=== PATIENT | male | born 1965 | race African-American/Black ===

== ENCOUNTER 2016-11-21 09:03 | Emergency (ER) | payer OTHER ==
[~2016-11-21] VITALS: Ht 170.2 cm; Wt 72.6 kg
[~2016-11-21 09:03] MED LIST: ALBUTEROL SULF8.5 GM INH; ALLEGRA ALLERGY60 M1 PO; ASPIR 8181 MG ORAL; ATORVASTATIN CA10 MG ORAL; BENADRYL A12.5 MG/5 ORAL; HYDROCHLOROTHIA25 MG ORAL; HYDROCORTISONE28 G5 TP; IBUPROFEN600 MG ORAL
[2016-11-21 09:20] VITALS: BP 151/102
[2016-11-21] MEDS ORDERED: Bacitracin Oint UD TOPIC ONE (10:00)
[2016-11-21] MEDS ORDERED: LORazepam 1mg tab ORAL ONE (10:00)
[2016-11-21 10:16] VITALS: BP 0/0
--- NOTE | 2016-11-21 22:21 | Emergency Room Report ---
History of Present Illness General Chief Complaint: General Complaint Source: Patient Present Illness HPI Patient brought by sister. According to Mom, he is acting bizarrely. They had called police, but they declined to bring or place patient on hold. EMS also declined as patient refused to come. Patient only states he needs "peach cobbler". C/O scratch R forearm. Denies SOTO, chest pain, NVD. Generally though, he refused to answer questions and perseverates about above and also states how "pretty the women are". Denies drugs. States tetanus UTD. Alleges he had a stroke 4-5 years ago. Seen 2010 for L arm numbness, but records not available. Other records state "TIA". Also h/o depression. No weakness. Allergies: Coded Allergies: No Known Allergies (Unverified , 03/31/13) Patient History Past Medical History: see triage record, old chart reviewed Social History: Reports: smoking Social History Narrative with sister Reviewed Nursing Documentation: PMH: Agreed, PSxH: Agreed Nursing Documentation-PMH Past Medical History: No History, Except For Hx Cardiac Problems: No Hx Hypertension: Yes Hx Pacemaker: No Hx Asthma: No Hx COPD: No Hx Diabetes: No Hx Cancer: No Hx Gastrointestinal Problems: No Hx Dialysis: No Hx Neurological Problems: No Hx Cerebrovascular Accident: Yes - TIA Hx Seizures: No Review of Systems All Other Systems: limited Physical Exam Vital Signs Date Time Temp Pulse Resp B/P Pulse Ox O2 Delivery O2 Flow Rate FiO2 11/21/16 09:12 97.9 93 14 151/102 98 Room Air Sp02 EP Interpretation: reviewed, normal General Appearance: well appearing, no apparent distress, non-toxic Head: normocephalic, atraumatic Eyes: bilateral eye PERRL, bilateral eye normal inspection ENT: moist mucus membranes Neck: full range of motion, supple Respiratory: chest non-tender, lungs clear, normal breath sounds Cardiovascular #1: regular rate, rhythm Cardiovascular #2: 2+ radial (R) Gastrointestinal: normal inspection, normal bowel sounds, non tender, no mass, non-distended Musculoskeletal: back normal, gait/station normal, normal range of motion Neurologic: alert, motor strength/tone normal, DTRs symmetric, sensory intact, cerebellar normal, normal gait, speech normal - though pressured, oriented - X1- 2 Psychiatric: no suicidal/homicidal ideation, other - delusional, hypersexual - labile Skin: normal color, warm/dry, abrasions - R forearm Medical Decision Making Diagnostic Impression: Primary Impression: Bizarre behavior Additional Impressions: Forearm abrasion Qualified Codes: S50.811A - Abrasion of right forearm, initial encounter Eloped ER Course Patient brought by sister for bizarre behavior. Ddx: psychosis, electrolyte imbalance, drug ingestion, exacerbation of depression amongst others. Patient somewhat delusional, not responding to questioning - concern over underlying organic or psychiatric etiology. Needs emergent evaluation with labs, CT, EKG. Abrasion superficial. Patient placed on medical hold. As clearly delusional , will give antipsychotic medication to assist with evaluation and possible help with delusions. He was going to the bathroom to give urine sample and ran out of ED. [employer] notified and requested to return patient to ED. Called phone and message left to return to ED. Last Vital Signs Date Time Temp Pulse Resp B/P Pulse Ox O2 Delivery O2 Flow Rate FiO2 11/21/16 10:16 97.9 0 0 0/0 0 Room Air Status: other - patient eloped Disposition: ELOPED Condition: Serious Referrals: [facility] (PCP) Jack Miguel M.D. Nov 21, 2016 22:21
== END 2016-11-21 10:18 | disposition left against medical advice (07) ==
LOC: EMR 09:59
DX: R46.2 Strange and inexplicable behavior (principal); S50.811A Abrasion of right forearm, initial encounter; X58.XXXA Exposure to other specified factors, initial encounter; Y93.9 Activity, unspecified; Y92.9 Unspecified place or not applicable; Z86.73 Personal history of transient ischemic attack (TIA), and cerebral infarction without residual deficits; F17.200 Nicotine dependence, unspecified, uncomplicated; I10 Essential (primary) hypertension
CPT/HCPCS: 99285

== ENCOUNTER 2016-12-02 12:16 | Emergency (ER) | payer OTHER ==
[~2016-12-02] VITALS: Ht 170.2 cm; Wt 76.7 kg
[2016-12-02 12:35] VITALS: BP 130/99
[2016-12-02] MEDS ORDERED: METOPROLOL TART25 MG ORAL (12:35)
[2016-12-02 13:01] LABS: BASOPHILS % (AUTO) 1.1 % (0.0-2.0); EOSINOPHILS % (AUTO) 1.2 % (0.0-3.0); MEAN CORPUSCULAR HEMOGLOBIN 31.7 PG (27.0-31.0); MEAN CORPUSCULAR HGB CONC 34.7 G/DL (32.0-36.0); MEAN CORPUSCULAR VOLUME 91 FL (80-99); MEAN PLATELET VOLUME 7.1 FL (6.5-10.1); MONOCYTES % (AUTO) 8.2 % (1.0-10.0); NEUTROPHILS % (AUTO) 55.5 % (45.0-75.0); PLATELET COUNT 264 K/UL (150-450); RED BLOOD COUNT 4.88 M/UL (4.70-6.10); RED CELL DISTRIBUTION WIDTH 11.1 % (11.6-14.8); WHITE BLOOD COUNT 4.8 K/UL (4.8-10.8)
[2016-12-02 13:28] LABS: TROPONIN I < 0.30 ng/mL (<=0.30)
[2016-12-02 13:31] LABS: ANION GAP 18 (5-15); CALCIUM 9.6 mg/dL (8.6-10.2); CARBON DIOXIDE 25 mEQ/L (20-30); CHLORIDE 97 mEQ/L (98-107); CREATININE 1.3 mg/dL (0.7-1.2); GLOMERULAR FILTRATION RATE > 60 mL/min (>60); POTASSIUM 3.3 mEQ/L (3.4-4.9); SODIUM 140 mEQ/L (135-145)
[2016-12-02 13:32] LABS: ALANINE AMINOTRANSFERASE 29 U/L (3-41); ASPARTATE AMINO TRANSFERASE 24 U/L (5-40); TOTAL PROTEIN 6.9 g/dL (6.6-8.7)
[2016-12-02 13:33] LABS: HEMOLYSIS 6
[2016-12-02 13:38] LABS: CKMB 5.2 ng/mL (< 6.7)
[2016-12-02 14:00] VITALS: BP 128/85
[2016-12-02 14:00] LABS: DIGOXIN < 0.3 ng/mL (0.5-2.0)
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
--- NOTE | 2016-12-03 10:06 | Diagnostic Imaging Report ---
Indication: Shortness of breath Technique: XRAY CHEST 1 V Comparison: 05/05/15 Findings: The cardiomediastinal silhouette is within normal limits. There is no focal consolidation, pneumothorax or pleural effusion. Osseous structures demonstrate no acute abnormality. Impression: No acute cardiopulmonary disease.
--- NOTE | 2016-12-08 16:34 | Cardiology Report ---
APPROVED REPORT EKG Measurement Heart [id number] [place] [id number] Normal sinus rhythm Incomplete right bundle branch block T wave abnormality, consider anterior ischemia Abnormal ECG
== END 2016-12-02 14:00 | disposition left against medical advice (07) ==
LOC: EMR 12:48
DX: R07.9 Chest pain, unspecified (principal); I10 Essential (primary) hypertension; Z86.73 Personal history of transient ischemic attack (TIA), and cerebral infarction without residual deficits
CPT/HCPCS: 36415; 71010; 80053; 80162; 82550; 82553; 84484; 85025; 93005; 96360

== ENCOUNTER 2017-01-12 21:19 | Emergency (ER) | payer OTHER ==
[~2017-01-12] VITALS: Ht 172.7 cm; Wt 72.6 kg
[~2017-01-12 21:19] MED LIST changes: +METOPROLOL TART25 MG ORAL
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
[2017-01-12 22:04] LABS: BASOPHILS % (AUTO) 1.2 % (0.0-2.0); LYMPHOCYTES % (AUTO) 32.1 % (20.0-45.0); MEAN CORPUSCULAR HEMOGLOBIN 34.4 PG (27.0-31.0); MEAN CORPUSCULAR HGB CONC 35.4 G/DL (32.0-36.0); MEAN CORPUSCULAR VOLUME 97 FL (80-99); MEAN PLATELET VOLUME 6.2 FL (6.5-10.1); MONOCYTES % (AUTO) 8.6 % (1.0-10.0); NEUTROPHILS % (AUTO) 55.1 % (45.0-75.0); PLATELET COUNT 209 K/UL (150-450); RED BLOOD COUNT 4.37 M/UL (4.70-6.10); RED CELL DISTRIBUTION WIDTH 12.3 % (11.6-14.8); WHITE BLOOD COUNT 5.3 K/UL (4.8-10.8)
[2017-01-12 22:20] LABS: ANION GAP 15 (5-15); CALCIUM 9.4 mg/dL (8.6-10.2); CARBON DIOXIDE 25 mEQ/L (20-30); CHLORIDE 99 mEQ/L (98-107); GLOMERULAR FILTRATION RATE > 60 mL/min (>60); HEMOLYSIS 7; POTASSIUM 3.6 mEQ/L (3.4-4.9); SODIUM 139 mEQ/L (135-145)
[2017-01-12 22:21] LABS: TROPONIN I < 0.30 ng/mL (<=0.30)
[2017-01-12 22:28] VITALS: BP 127/92
[2017-01-12 22:39] LABS: APPEARANCE,URINE CLEAR; KETONES,URINE NEGATIVE (NEGATIVE); LEUKOCYTE ESTERASE ,URINE NEGATIVE (NEGATIVE); NITRITE,URINE NEGATIVE (NEGATIVE); PH,URINE 7 (4.5-8.0); PROTEIN,URINE NEGATIVE (NEGATIVE); UROBILINOGEN,URINE NORMAL MG/DL (0.0-1.0)
[2017-01-12 23:04] VITALS: BP 132/91
--- NOTE | 2017-01-13 10:11 | Diagnostic Imaging Report ---
Indication: CP Technique: XRAY CHEST 1 V Comparison: 12/02/2016. Findings: The cardiomediastinal silhouette is normal. The lungs are clear. There is no evidence of pleural fluid. The bones are unremarkable. Impression: Normal chest.
--- NOTE | 2017-01-17 08:31 | Cardiology Report ---
APPROVED REPORT EKG Measurement Heart [id number] [id number] Normal sinus rhythm Incomplete right bundle branch block Nonspecific T wave abnormality Abnormal ECG
== END 2017-01-12 23:10 | disposition home or self-care (01) ==
LOC: EMR 21:57
DX: R07.9 Chest pain, unspecified (principal); F16.10 Hallucinogen abuse, uncomplicated; I10 Essential (primary) hypertension; F17.200 Nicotine dependence, unspecified, uncomplicated
CPT/HCPCS: 36415; 71010; 80048; 80300; 81003; 84484; 85025; 93005; 99283

== ENCOUNTER 2017-09-04 07:48 | Emergency (ER) | payer OTHER ==
[~2017-09-04] VITALS: Ht 167.6 cm; Wt 75.7 kg
[2017-09-04] MEDS ORDERED: Sodium Chloride 500ML 500 ML IV ONE (08:10)
[2017-09-04 08:17] VITALS: BP 127/91
--- NOTE | 2017-09-04 08:41 | Emergency Room Report ---
History of Present Illness General Chief Complaint: Generalized Weakness Source: Patient Present Illness HPI Patient is a 52-year-old male who presented after increased generalized weakness as well as right-sided flank pain. The patient gradual onset of symptoms. Patient reports having prior history of hypertension for which he does not take medications regularly however he has been prescribed medications in the past. The patient not been having any fever. He reported having some epigastric burning sensation for the past few days. He denies any bloody stools. He reports urinating normally. He reports having some intermittent numbness to his left upper extremity as well as some hand cramping. He denied episodes of diarrhea. Allergies: Coded Allergies: No Known Allergies (Unverified , 03/31/13) Patient History Past Medical History: see triage record Reviewed Nursing Documentation: PMH: Agreed, PSxH: Agreed Nursing Documentation-PMH Past Medical History: No History, Except For Hx Hypertension: Yes Hx Pacemaker: No Hx Asthma: No Hx COPD: No Hx Diabetes: No Hx Cancer: No Hx Gastrointestinal Problems: No Hx Dialysis: No Hx Neurological Problems: No Hx Seizures: No Review of Systems All Other Systems: negative except mentioned in HPI Physical Exam Vital Signs Date Time Temp Pulse Resp B/P (MAP) Pulse Ox O2 Delivery O2 Flow Rate FiO2 09/04/17 07:50 97.7 81 18 147/100 99 Room Air Sp02 EP Interpretation: reviewed, normal General Appearance: normal inspection, well appearing, no apparent distress, alert, GCS 15, non-toxic Head: atraumatic ENT: normal ENT inspection, hearing grossly normal, normal voice Neck: normal inspection, full range of motion, supple, no bony tend Respiratory: normal inspection, lungs clear, normal breath sounds, no respiratory distress, no retraction, no wheezing Cardiovascular #1: regular rate, rhythm, no edema Gastrointestinal: normal inspection, normal bowel sounds, non tender, soft, no guarding, no hernia Genitourinary: no CVA tenderness Musculoskeletal: normal inspection, back normal, normal range of motion Neurologic: normal inspection, alert, oriented x3, responsive, training coordinator III-XII nml as tested, speech normal Psychiatric: normal inspection, judgement/insight normal, mood/affect normal Skin: normal inspection, normal color, no rash Medical Decision Making Diagnostic Impression: Primary Impression: Episode of generalized weakness Additional Impressions: Cystic disease of liver Positive urine drug screen ER Course Patient presented for flank pain. Differential diagnosis included was not limited to pneumonia, renal stone, rib fracture, pulmonary embolism, ulcer, enteritis, pyelonephritis among others. Because of complexity of patient's case laboratory testing and imaging studies were ordered.The patient was noted to have some concerning signs of symptoms including weight loss.A CT abdomen pelvis was ordered with oral contrast. Laboratory testing was notable for urination positive for PCP as well as marijuana. The patient was noted to have CT imaging of the abdomen pelvis read by radiology which showed multiple cystic lesions to his liver. The patient is advised to followup with primary care physician for further workup of liver cysts as well as further evaluation of his weight loss. Patient is advised that he may need gastroenterology followup for EGD and colonoscopy.The patient was also noted to have enlarged prostate.The patient is advised to follow up with primary care doctor in 1-2 days. Patient is advised to return if any worsening condition or if any changes in status that are concerning. Labs Test 09/04/17 08:20 09/04/17 08:35 09/04/17 09:15 White Blood Count 4.5 K/UL (4.8-10.8) Red Blood Count 4.92 M/UL (4.70-6.10) Hemoglobin 16.0 G/DL (14.2-18.0) Hematocrit 47.5 % (42.0-52.0) Mean Corpuscular Volume 97 FL (80-99) Mean Corpuscular Hemoglobin 32.4 PG (27.0-31.0) Mean Corpuscular Hemoglobin Concent 33.5 G/DL (32.0-36.0) Red Cell Distribution Width 11.0 % (11.6-14.8) Platelet Count 238 K/UL (150-450) Mean Platelet Volume 6.4 FL (6.5-10.1) Neutrophils (%) (Auto) 59.4 % (45.0-75.0) Lymphocytes (%) (Auto) 28.0 % (20.0-45.0) Monocytes (%) (Auto) 9.6 % (1.0-10.0) Eosinophils (%) (Auto) 1.8 % (0.0-3.0) Basophils (%) (Auto) 1.3 % (0.0-2.0) Erythrocyte Sedimentation Rate 15 MM/HR (0-20) Prothrombin Time 9.5 SEC (9.30-11.50) Prothromb Time International Ratio 0.9 (0.9-1.1) Activated Partial Thromboplast Time 30 SEC (23-33) Sodium Level 141 MMOL/L (136-145) Potassium Level 3.7 MMOL/L (3.5-5.1) Chloride Level 106 MMOL/L (98-107) Carbon Dioxide Level 26 MMOL/L (21-32) Anion Gap 9 mmol/L (5-15) Blood Urea Nitrogen 12 mg/dL (7-18) Creatinine 1.2 MG/DL (0.55-1.30) Estimat Glomerular Filtration Rate > 60 mL/min (>60) Glucose Level 114 MG/DL (74-106) Calcium Level 9.5 MG/DL (8.5-10.1) Total Bilirubin 0.7 MG/DL (0.2-1.0) Aspartate Amino Transf (AST/SGOT) 18 U/L (15-37) Alanine Aminotransferase (ALT/SGPT) 29 U/L (12-78) Alkaline Phosphatase 92 U/L (46-116) Troponin I 0.000 ng/mL (0.000-0.056) Total Protein 7.6 G/DL (6.4-8.2) Albumin 3.9 G/DL (3.4-5.0) Globulin 3.7 g/dL Albumin/Globulin Ratio 1.1 (1.0-2.7) Lipase 144 U/L (73-393) Urine Color Yellow Urine Appearance Clear Urine pH 6 (4.5-8.0) Urine Specific [place] 1.020 (1.005-1.035) Urine Protein Negative (NEGATIVE) Urine Glucose (UA) Negative (NEGATIVE) Urine Ketones Negative (NEGATIVE) Urine Occult Blood Negative (NEGATIVE) Urine Nitrite Negative (NEGATIVE) Urine Bilirubin Negative (NEGATIVE) Urine Urobilinogen Normal MG/DL (0.0-1.0) Urine Leukocyte Esterase Negative (NEGATIVE) Urine Opiates Screen Negative (NEGATIVE) Urine Barbiturates Screen Negative (NEGATIVE) Phencyclidine (PCP) Screen Positive (NEGATIVE) Urine Amphetamines Screen Negative (NEGATIVE) Urine Benzodiazepines Screen Negative (NEGATIVE) Urine Cocaine Screen Negative (NEGATIVE) Urine Marijuana (THC) Screen Positive (NEGATIVE) Last Vital Signs Date Time Temp Pulse Resp B/P (MAP) Pulse Ox O2 Delivery O2 Flow Rate FiO2 09/04/17 08:17 97.8 64 23 127/91 97 Room Air Status: improved Disposition: HOME, SELF-CARE Condition: Stable Referrals: [facility] ([facility]P) Elliott Escalante Sep 04, 2017 08:41
[2017-09-04 08:47] LABS: INR 0.9 (0.9-1.1); PROTHROMBIN TIME 9.5 SEC (9.30-11.50)
[2017-09-04 08:50] LABS: ANION GAP 9 mmol/L (5-15); CALCIUM 9.5 MG/DL (8.5-10.1); CARBON DIOXIDE 26 MMOL/L (21-32); CHLORIDE 106 MMOL/L (98-107); CREATININE 1.2 MG/DL (0.55-1.30); GLOMERULAR FILTRATION RATE > 60 mL/min (>60); POTASSIUM 3.7 MMOL/L (3.5-5.1); SODIUM 141 MMOL/L (136-145)
[2017-09-04 08:51] LABS: BASOPHILS % (AUTO) 1.3 % (0.0-2.0); EOSINOPHILS % (AUTO) 1.8 % (0.0-3.0); MEAN CORPUSCULAR HEMOGLOBIN 32.4 PG (27.0-31.0); MEAN CORPUSCULAR HGB CONC 33.5 G/DL (32.0-36.0); MEAN CORPUSCULAR VOLUME 97 FL (80-99); MEAN PLATELET VOLUME 6.4 FL (6.5-10.1); MONOCYTES % (AUTO) 9.6 % (1.0-10.0); NEUTROPHILS % (AUTO) 59.4 % (45.0-75.0); PLATELET COUNT 238 K/UL (150-450); RED BLOOD COUNT 4.92 M/UL (4.70-6.10); WHITE BLOOD COUNT 4.5 K/UL (4.8-10.8)
[2017-09-04 08:54] LABS: ALANINE AMINOTRANSFERASE 29 U/L (12-78); ALBUMIN/GLOBULIN RATIO 1.1 (1.0-2.7); ASPARTATE AMINO TRANSFERASE 18 U/L (15-37); LIPASE 144 U/L (73-393); TOTAL PROTEIN 7.6 G/DL (6.4-8.2)
[2017-09-04 09:07] LABS: APPEARANCE,URINE CLEAR; KETONES,URINE NEGATIVE (NEGATIVE); LEUKOCYTE ESTERASE ,URINE NEGATIVE (NEGATIVE); NITRITE,URINE NEGATIVE (NEGATIVE); PH,URINE 6 (4.5-8.0); PROTEIN,URINE NEGATIVE (NEGATIVE); UROBILINOGEN,URINE NORMAL MG/DL (0.0-1.0)
[2017-09-04 10:22] VITALS: BP 130/69
[2017-09-04 11:21] VITALS: BP 126/94
[2017-09-04 11:39] VITALS: BP 129/94
--- NOTE | 2017-09-06 17:21 | Cardiology Report ---
APPROVED REPORT EKG Measurement Heart [id number] 160P44 [id number] Sinus bradycardia Otherwise normal ECG
--- NOTE | 2017-09-07 10:03 | Diagnostic Imaging Report ---
Indication: Abdominal pain Technique: CT of the abdomen and pelvis utilizing automated exposure control with intravenous contrast. Oral contrast was also administered. Venous scanning performed. CT dose: Total DLP 762 mGycm; CTDI vol 15.4 mGy Comparison: None Findings: Dependent atelectasis noted in the lung bases. Heart size is within normal limits. There is no pericardial effusion. Liver is normal in contour. There are multiple simple appearing well-circumscribed low-attenuation lesions in the liver, largest of which is located in the left lobe measuring up to 1.6 mm in diameter. This has internal density measurements compatible with a simple hepatic cyst. Additional similar appearing but smaller lesions are too small to definitively characterize but may represent simple cysts or biliary hamartomas. There are also some low attenuation lesions that demonstrate somewhat nodular enhancement which would be characteristic of a hemangioma, the largest of these is in the right hepatic lobe measures up to 2 cm in diameter. Hepatic veins and portal veins appear patent. Gallbladder is unremarkable in appearance. Spleen, adrenal glands and pancreas are unremarkable in appearance. The kidneys enhance symmetrically. There is no urinary tract stone or hydronephrosis bilaterally. Bladder is normal in appearance. Prostate is mildly enlarged and heterogeneous. There is no evidence of bowel obstruction. No free peritoneal fluid or air is identified. There are scattered colonic diverticula without evidence to suggest acute diverticulitis. The appendix is normal. No pathologically enlarged abdominal or pelvic lymphadenopathy. Abdominal aorta is normal in caliber. No acute osseous abnormality seen. Small fat-containing right inguinal hernia. Impression: No evidence of acute intra-abdominal pathology. * Multiple well-circumscribed low attenuation lesions in the liver, some with characteristics of simple hepatic cysts and others with characteristics of hepatic hemangiomas. Additional subcentimeter lesions are too small to fully characterize. Consider dynamic contrast-enhanced liver protocol MRI for definitive evaluation. This may be obtained on a nonemergent basis. * Few scattered colonic diverticula. Evidence to suggest acute diverticulitis. * Prostatomegaly. * No bowel obstruction. Appendix normal. * Additional findings as above The CT scanner at [facility] is accredited by the [employer] and the scans are performed using protocols designed to limit radiation exposure to as low as reasonably achievable to attain images of sufficient resolution adequate for diagnostic evaluation.
--- NOTE | 2017-09-07 10:03 | Diagnostic Imaging Report ---
Indication: Charts of breath Technique: XRAY CHEST 1 V Comparison: 1417 Findings: Heart size and mediastinal contours are within normal limits given technique. There is no focal consolidation, pneumothorax or pleural effusion. Osseous structures demonstrate no acute abnormality. Impression: No radiographic evidence of acute cardiopulmonary disease.
== END 2017-09-04 11:40 | disposition home or self-care (01) ==
LOC: EMR 08:13
DX: R53.1 Weakness (principal); K76.89 Other specified diseases of liver; I10 Essential (primary) hypertension; N40.0 Benign prostatic hyperplasia without lower urinary tract symptoms; F12.90 Cannabis use, unspecified, uncomplicated; F16.90 Hallucinogen use, unspecified, uncomplicated
CPT/HCPCS: 36415; 71010; 74177; 80053; 80307; 81003; 83690; 84484; 85025; 85610; 85651; 85730; 86850; 86900; 86901; 93005; 96360; 99284; Q9967

== ENCOUNTER 2018-08-18 13:23 | Emergency (ER) | payer OTHER ==
[~2018-08-18] VITALS: Ht 167.6 cm; Wt 72.6 kg
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
[2018-08-18] MEDS ORDERED: Methocarbamol 500mg tab ORAL ONE (14:00)
[2018-08-18] MEDS ORDERED: TYLENOL EXTRA500 MG ORAL (14:40)
[2018-08-18] MEDS ORDERED: ROBAXIN500 MG PO (14:40)
[2018-08-18] MEDS ORDERED: LIDOCAINE700 M1 TP (14:40)
[2018-08-18 14:57] VITALS: BP_SYST 131; BP_SYST 135; BP_DIAS 79; BP_DIAS 83
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
== END 2018-08-18 14:57 | disposition home or self-care (01) ==
LOC: EMR 13:40
DX: S16.1XXA Strain of muscle, fascia and tendon at neck level, initial encounter (principal); V44.5XXA Car driver injured in collision with heavy transport vehicle or bus in traffic accident, initial encounter; Y92.410 Unspecified street and highway as the place of occurrence of the external cause; M50.31 Other cervical disc degeneration, high cervical region; I10 Essential (primary) hypertension
CPT/HCPCS: 72125; 99284

== ENCOUNTER 2018-12-29 08:46 | Emergency (ER) | payer OTHER ==
[~2018-12-29] VITALS: Ht 170.2 cm; Wt 71.7 kg
[~2018-12-29 08:46] MED LIST changes: +LIDOCAINE700 M1 TP; +ROBAXIN500 MG PO; +TYLENOL EXTRA500 MG ORAL
[2018-12-29 08:55] VITALS: BP 157/97
[2018-12-29] MEDS ORDERED: NYSTATIN15 GM TOPIC (09:25)
--- NOTE | 2018-12-29 09:35 | Emergency Room Report ---
History of Present Illness General Chief Complaint: Male Urogenital Problems Source: Patient Present Illness HPI Patient presents with complaints of itching to the penile head Reports that the itching is just under the foreskin Ongoing for the past several days Patient reports that he does use condoms on a regular basis however there has been several episodes where he did not use a condom He was concerned that his partner might have yeast infection Denies any swollen lymph nodes denies any fevers denies any vomiting or diarrhea denies any other ulcerations or other type of rash Allergies: Coded Allergies: No Known Allergies (Unverified , 03/31/13) Patient History Past Medical History: see triage record Pertinent Family History: none Reviewed Nursing Documentation: PMH: Agreed; PSxH: Agreed Nursing Documentation-PMH Past Medical History: No History, Except For Hx Hypertension: Yes Hx Pacemaker: No Hx Asthma: No Hx COPD: No Hx Diabetes: No Hx Cancer: No Hx Gastrointestinal Problems: No Hx Dialysis: No Hx Neurological Problems: No Hx Seizures: No Review of Systems All Other Systems: negative except mentioned in HPI Physical Exam Vital Signs Date Time Temp Pulse Resp B/P (MAP) Pulse Ox O2 Delivery O2 Flow Rate FiO2 12/29/18 08:55 98.1 101 20 157/97 98 Room Air Sp02 EP Interpretation: reviewed, normal General Appearance: well appearing, no apparent distress Head: normocephalic, atraumatic Eyes: bilateral eye PERRL, bilateral eye EOMI ENT: no angioedema Neck: supple Gastrointestinal: non tender, soft Genitourinary: other - Mild fine erythematous hue just at the foreskin no obvious ulcerations or blister formation Musculoskeletal: normal inspection Neurologic: alert, oriented x3, responsive Skin: other - As above Lymphatic: no adenopathy Medical Decision Making Diagnostic Impression: Primary Impression: dermatitis Additional Impression: rash ER Course Patient's exam reveals some fine erythematous hue just in the foreskin, appears to be likely fungal/yast in nature Patient does not complain of any other discharge there was no other ulcerations or ulcer formation or petechiae 2, taped other STD pathology acutely Patient however is at risk and requires close STD clinic follow-up I discussed with him that the examination today does not evaluate for HIV or other infectious pathology and this is required emergently as an outpatient basis given his history and presentation patient understands this and will follow closely Last Vital Signs Date Time Temp Pulse Resp B/P (MAP) Pulse Ox O2 Delivery O2 Flow Rate FiO2 12/29/18 08:55 98.1 101 20 157/97 98 Room Air Status: unchanged Disposition: HOME, SELF-CARE Condition: Stable Scripts Nystatin* (NYSTATIN*) 15 Gm Cream..g. 1 INCH TOPIC THREE TIMES A DAY for 7 Days, #15 GM Prov: Ruth Perdomo DO 12/29/18 Referrals: [facility]ERR[facility] (PCP) Laura [facility]. [facility] Patient Instructions: Genital Yeast Infection, Male, Rash, [id number] Additional Instructions: Patient is provided with the discharge instructions notified to follow up with primary doctor in the next 2-3 days otherwise return to the er with any worsening symptoms. Please note that this report is being documented using [employer] technology. This can lead to erroneous entry secondary to incorrect interpretation by the dictating instrument. Ruth Perdomo DO Dec 29, 2018 09:35
--- NOTE | 2018-12-29 09:46 | NUR ---
ER DISCHARGE NOTE: Patient is cleared to be discharged per ERMD, pt is aox4, on room air, with stable vital signs. pt was given dc and prescription instructions, pt was able to verbalize understanding, pt is able to ambulate with steady gait. pt took all belongings.
[2018-12-29 09:47] VITALS: BP 154/91
== END 2018-12-29 09:48 | disposition home or self-care (01) ==
LOC: EMR 09:20
DX: L30.9 Dermatitis, unspecified (principal); I10 Essential (primary) hypertension
CPT/HCPCS: 99282

== ENCOUNTER → 2019-07-19 | Emergency (ER) | payer OTHER ==
[~2019-07-19] VITALS: Ht 167.6 cm; Wt 72.6 kg
[~2019-07-19] MED LIST changes: +NYSTATIN15 GM TOPIC
--- NOTE | 2019-07-19 17:38 | NUR ---
called pt, not in the waiting room.
--- NOTE | 2019-07-19 17:50 | NUR ---
ED Nurse Note: Patient walked in to ER from home to get psychic evaluation per pt's friend recommendation. pt aao x4 and ambulatory. skin clean and intact. cooperative but loud speaker. per pt's friend pt tends to scream often. pt denied idea of hurting himself or others.
[2019-07-19 18:04] VITALS: BP 132/95
--- NOTE | 2019-07-19 18:16 | Emergency Room Report ---
History of Present Illness General Chief Complaint: General Complaint Source: Medical Record Present Illness HPI 54-year-old male with no significant past medical history here with his significant other for psychiatric evaluation. Patient himself denies having any psychiatric issues, denies SI, HI, history of depression, anxiety. According to significant other patient was at the store with her he started randomly talking to different people in the voice however did not contact anyone or use language. Patient appears to have full judgment and responsive. Denies other associated symptoms, chest pain, shortness of breath, palpitation, and other associated symptoms. Denies history of psychiatric disorders. Patient himself does not want to be psychiatrically. Patient does not suggest that he is under the influence of any drugs or has an disorder. Denies drug use , tobacco smoke, alcohol intake. Allergies: Coded Allergies: No Known Allergies (Unverified , 03/31/13) Patient History Past Surgical History: unable to obtain Family History: none Immunizations: UTD Reviewed Nursing Documentation: PMH: Agreed; PSxH: Agreed Nursing Documentation-PMH Past Medical History: No History, Except For Hx Hypertension: Yes Hx Pacemaker: No Hx Asthma: No Hx COPD: No Hx Diabetes: No Hx Cancer: No Hx Gastrointestinal Problems: No Hx Dialysis: No Hx Neurological Problems: No Hx Seizures: No Review of Systems All Other Systems: negative except mentioned in HPI Physical Exam Vital Signs Date Time Temp Pulse Resp B/P (MAP) Pulse Ox O2 Delivery O2 Flow Rate FiO2 07/19/19 17:45 98.1 92 18 132/95 (107) 96 Room Air Sp02 EP Interpretation: reviewed, normal General Appearance: alert/responsive, no apparent distress, GCS 15, non-toxic Head: atraumatic Eyes: PERRL, lids + conjunctiva normal ENT: hearing intact, no angioedema Neck: supple/symm/no masses, no meningismus Respiratory: effort normal, no wheezing, chest symmetrical Cardiovascular: regular rate, rhythm, no edema Gastrointestinal: non-tender, no mass, non-distended, no rebound/guarding, normal bowel sounds Musculoskeletal: gait & station normal, strength & tone normal, normal ROM, non -tender Neurologic: normal inspection, CN II-XII intact, oriented x3, DTRs symmetric Psychiatric: normal inspection, judgment & insight normal Skin: no rash, well hydrated Lymphatic: normal inspection Medical Decision Making PA Attestation All my diagnosis and treatment plans were reviewed ad discussed with my supervising physician Dr. Stallworth Diagnostic Impression: Primary Impression: Encounter for generalized patient complaints Additional Impression: Self-destructive behavior ER Course 54-year-old male with no significant past medical history here with his significant other for psychiatric evaluation. Patient himself denies having any psychiatric issues, denies SI, HI, history of depression, anxiety. According to significant other patient was at the store with her he started randomly talking to different people in the voice however did not contact anyone or use language. Patient appears to have full judgment and responsive. Denies other associated symptoms, chest pain, shortness of breath, palpitation, and other associated symptoms. Denies history of psychiatric disorders. Patient himself does not want to be psychiatrically. Patient does not suggest that he is under the influence of any drugs or has an disorder. Denies drug use , tobacco smoke, alcohol intake. Ddx considered but are not limited to: generalized anxiety disorder, panic attack, depression with psycotic featurs, bipolar disorder, drug overdose Vital signs: are WNL, pt. is afebrile H&PE are most consistent with: Self-destructive behavior ORDERS: none required at this time, the diagnosis is clinical ED INTERVENTIONS: None required at this time. DISCHARGE: At this time pt. is stable for d/c to home. Will provide printed patient care instructions, and any necessary prescriptions. Care plan and follow up instructions have been discussed with the patient prior to discharge. Last Vital Signs Date Time Temp Pulse Resp B/P (MAP) Pulse Ox O2 Delivery O2 Flow Rate FiO2 07/19/19 18:04 98.1 87 18 132/95 96 Room Air Disposition: HOME, SELF-CARE Condition: Stable Patient Instructions: Self-Destructive Behavior Alonso Thomas Jul 19, 2019 18:16
[2019-07-19 18:24] VITALS: BP 123/83
--- NOTE | 2019-07-19 18:25 | NUR ---
ED Nurse Note: Pt cleared by health care Provider for discharge. DC instructions was given and explained to pt and verbalized understanding of teachings. All medical deviecs such as ID band removed. Pt is AAO x4, ambulatory and left with all personal belongings.
== END | disposition home or self-care (01) ==
LOC: EMR 18:15
DX: I10 Essential (primary) hypertension (principal); Z72.89 Other problems related to lifestyle
CPT/HCPCS: 99281

== ENCOUNTER 2019-09-16 16:43 | Emergency (ER) | payer OTHER ==
[~2019-09-16] VITALS: Ht 182.9 cm; Wt 81.6 kg
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
[2019-09-16 16:44] VITALS: BP 150/105
--- NOTE | 2019-09-16 17:05 | NUR ---
ED Nurse Note: Blood sample sent down to lab
--- NOTE | 2019-09-16 17:20 | NUR ---
ED Nurse Note: pt became more alert and started asking question about how he got here. info provided to pt.
[2019-09-16 17:22] LABS: BASOPHILS % (AUTO) 2.3 % (0.0-2.0); EOSINOPHILS % (AUTO) 1.2 % (0.0-3.0); HEMATOCRIT 44.9 % (42.0-52.0); HEMOGLOBIN 16.4 G/DL (14.2-18.0); LYMPHOCYTES % (AUTO) 34.9 % (20.0-45.0); MEAN CORPUSCULAR VOLUME 88 FL (80-99); MONOCYTES % (AUTO) 9.1 % (1.0-10.0); NEUTROPHILS % (AUTO) 52.5 % (45.0-75.0); PLATELET COUNT 250 K/UL (150-450); RED BLOOD COUNT 5.13 M/UL (4.70-6.10); RED CELL DISTRIBUTION WIDTH 10.4 % (11.6-14.8); WHITE BLOOD COUNT 5.4 K/UL (4.8-10.8)
[2019-09-16 17:37] LABS: ANION GAP 7 mmol/L (5-15); BLOOD UREA NITROGEN 15 mg/dL (7-18); CALCIUM 9.1 MG/DL (8.5-10.1); CARBON DIOXIDE 27 MMOL/L (21-32); CHLORIDE 110 MMOL/L (98-107); CREATININE 1.1 MG/DL (0.55-1.30); POTASSIUM 3.6 MMOL/L (3.5-5.1); SODIUM 143 MMOL/L (136-145)
[2019-09-16 17:42] LABS: ALANINE AMINOTRANSFERASE 26 U/L (12-78); ALBUMIN 3.6 G/DL (3.4-5.0); ALKALINE PHOSPHATASE 107 U/L (46-116); ASPARTATE AMINO TRANSFERASE 15 U/L (15-37); BILIRUBIN,TOTAL 0.4 MG/DL (0.2-1.0)
--- NOTE | 2019-09-16 18:30 | Emergency Room Report ---
History of Present Illness General Chief Complaint: Overdose Source: EMS Present Illness HPI 61-year-old male presents to emergency room with mental status changes after using PCP. Patient as per EMS was not responding to commands or answering questions appropriately. Here patient is able to be oriented to person and is stating that he used PCP prior to arrival. He states he dipped his cigarette in it and smoked. He denies any injuries or pain. Allergies: Coded Allergies: UNABLE TO ASSESS (Unverified , 09/16/19) Nursing Documentation-[facility] Past Medical History: Deferred Review of Systems Constitutional: Denies: chills, fever Respiratory: Denies: cough, shortness of breath Cardiovascular: Denies: chest pain, palpitations Gastrointestinal: Denies: diarrhea, vomiting Genitourinary: Denies: hematuria, pain Musculoskeletal: Denies: joint swelling Skin: Denies: rash, lesions Neurological: Denies: headache, dizziness Physical Exam Vital Signs Date Time Temp Pulse Resp B/P (MAP) Pulse Ox O2 Delivery O2 Flow Rate FiO2 09/16/19 16:36 97.9 82 16 154/90 (111) 98 Room Air Sp02 EP Interpretation: reviewed General Appearance: well appearing, no apparent distress, non-toxic Head: normocephalic, atraumatic Eyes: bilateral eye normal inspection ENT: hearing grossly normal, EOM grossly intact, moist mucus membranes Neck: supple Respiratory: lungs clear, normal breath sounds, no respiratory distress, speaking full sentences Cardiovascular #1: regular rate, rhythm, normal capillary refill Cardiovascular #2: 2+ radial (R), 2+ radial (L) Gastrointestinal: soft, non-distended Rectal: deferred Musculoskeletal: moves extm spontaneously, no lower extremity edema Neurologic: alert, motor strength/tone normal, static balancer III-XII nml as tested, distal neuro normal, sensory intact, grossly normal, other - Oriented to person and place Psychiatric: mood/affect normal Skin: warm/dry, normal turgor Medical Decision Making ER Course 54-year-old male brought in by EMS who presents with mental status changes status post drug use. He has no active complaints at this time he is more oriented to person and place. Exam within normal limits. We will test for causes of mental status changes at this time and reassess Laboratory Tests Test 09/16/19 17:00 09/16/19 17:05 White Blood Count 5.4 K/UL (4.8-10.8) Red Blood Count 5.13 M/UL (4.70-6.10) Hemoglobin 16.4 G/DL (14.2-18.0) Hematocrit 44.9 % (42.0-52.0) Mean Corpuscular Volume 88 FL (80-99) Mean Corpuscular Hemoglobin 32.0 PG (27.0-31.0) H Mean Corpuscular Hemoglobin Concent 36.5 G/DL (32.0-36.0) H Red Cell Distribution Width 10.4 % (11.6-14.8) L Platelet Count 250 K/UL (150-450) Mean Platelet Volume 5.6 FL (6.5-10.1) L Neutrophils (%) (Auto) 52.5 % (45.0-75.0) Lymphocytes (%) (Auto) 34.9 % (20.0-45.0) Monocytes (%) (Auto) 9.1 % (1.0-10.0) Eosinophils (%) (Auto) 1.2 % (0.0-3.0) Basophils (%) (Auto) 2.3 % (0.0-2.0) H Sodium Level 143 MMOL/L (136-145) Potassium Level 3.6 MMOL/L (3.5-5.1) Chloride Level 110 MMOL/L (98-107) H Carbon Dioxide Level 27 MMOL/L (21-32) Anion Gap 7 mmol/L (5-15) Blood Urea Nitrogen 15 mg/dL (7-18) Creatinine 1.1 MG/DL (0.55-1.30) Estimate Glomerular Filtration Rate > 60 mL/min (>60) Glucose Level 103 MG/DL (74-106) Calcium Level 9.1 MG/DL (8.5-10.1) Total Bilirubin 0.4 MG/DL (0.2-1.0) Aspartate Amino Transferase (AST) 15 U/L (15-37) Alanine Aminotransferase (ALT) 26 U/L (12-78) Alkaline Phosphatase 107 U/L (46-116) Total Protein 7.1 G/DL (6.4-8.2) Albumin 3.6 G/DL (3.4-5.0) Globulin 3.5 g/dL Albumin/Globulin Ratio 1.0 (1.0-2.7) Salicylates Level 1.3 ug/mL (2.8-20) L Acetaminophen Level < 2 MCG/ML (10-30) L Serum Alcohol < 3 mg/dL Urine Opiates Screen Negative (NEGATIVE) Urine Barbiturates Screen Negative (NEGATIVE) Phencyclidine (PCP) Screen Positive (NEGATIVE) H Urine Amphetamines Screen Negative (NEGATIVE) Urine Benzodiazepines Screen Negative (NEGATIVE) Urine Cocaine Screen Negative (NEGATIVE) Urine Marijuana (THC) Screen Negative (NEGATIVE) Lab Results Impression CBC within normal limits, chemistry within normal limits, UDS positive for PCP, negative alcohol Last Vital Signs Date Time Temp Pulse Resp B/P (MAP) Pulse Ox O2 Delivery O2 Flow Rate FiO2 09/16/19 16:44 98.0 85 16 150/105 98 Room Air Status: improved Reevaluation Impression Patient more alert, able to give name, birthdate. Patient reports using PCP. Patient is ambulatory with steady gait. Patient is stable for outpatient follow -up and discharge. Recommended to stop using drugs Disposition: HOME, SELF-CARE Condition: Stable Referrals: [facility] Patient Instructions: Drug Overdose Additional Instructions: Follow-up with clinic and stop using illicit substances Nato Farmer M.D. Sep 16, 2019 18:30
[2019-09-16 19:05] VITALS: BP 140/90
--- NOTE | 2019-09-16 19:05 | NUR ---
ER DISCHARGE NOTE: Patient is cleared to be discharged per ERMD, pt is aox4, on room air, with stable vital signs. pt was given dc instructions, pt was able to verbalize understanding, pt id band and iv site removed without complications. pt is able to ambulate with steady gait. pt took all belongings.
== END 2019-09-16 19:05 | disposition home or self-care (01) ==
LOC: EDBD 16:43 → MERGE 18:32 → EMR 18:32
DX: R41.82 Altered mental status, unspecified (principal); F17.210 Nicotine dependence, cigarettes, uncomplicated; F16.90 Hallucinogen use, unspecified, uncomplicated
CPT/HCPCS: 36415; 80053; 80307; 85025; G0480; G0481; Z7502; 99283

== ENCOUNTER 2020-06-15 01:47 | Emergency (ER) | payer OTHER ==
[~2020-06-15 01:47] MED LIST changes: +LIDODERM700 M1 TOPIC; +NAPROXEN250 MG ORAL; +ROBAXIN-750750 MG PO
--- NOTE | 2020-06-15 01:58 | NUR ---
ED Nurse Note: Patient decided not to be triaged because of visitor options.
--- NOTE | 2020-06-15 02:02 | NUR ---
ED Nurse Note: Patient decided to leave without being seen.
--- NOTE | 2020-06-15 02:26 | Emergency Room Report ---
History of Present Illness General Chief Complaint: To Be Triaged Source: Patient Present Illness HPI This a 55-year-old male who presents with chief complaint of body pain. He checked in with this complaint but left prior to triage because his girlfriend could be back here with him. I did not see this patient. Allergies: Coded Allergies: No Known Allergies (Unverified , 03/31/13) Patient History Past Medical History: see triage record, old chart reviewed Past Surgical History: other Pertinent Family History: none Social History: Denies: smoking Immunizations: other Reviewed Nursing Documentation: PMH: Agreed; PSxH: Agreed Nursing Documentation-PMH Hx Hypertension: Yes Hx Pacemaker: No Hx Asthma: No Hx COPD: No Hx Diabetes: No Hx Cancer: No Hx Gastrointestinal Problems: No Hx Dialysis: No Hx Neurological Problems: No Hx Seizures: No Medical Decision Making Diagnostic Impression: Primary Impression: Whole body pain Status: unchanged Disposition: LEFT W/OUT BEING SEEN Condition: Stable Referrals: [facility]ERR[facility] (PCP) Evans Menchaca MD Jun 15, 2020 02:25
== END 2020-06-15 02:02 | disposition left against medical advice (07) ==
LOC: EMR 02:00
DX: R52 Pain, unspecified (principal); Z53.21 Procedure and treatment not carried out due to patient leaving prior to being seen by health care provider; I10 Essential (primary) hypertension